=== PATIENT | female | born 1985 | race Caucasian/White ===

== ENCOUNTER 2022-05-22 07:12 | Inpatient (IN) | payer MEDICAID, SELFPAY ==
[2022-05-22] VITALS (47 sets, daily range): BP systolic 72–129; BP diastolic 48–82; PULSE 72–93; RESP 16–17; TEMP 36.8–37.7; O2SAT 97–100; BMI 30.6
[2022-05-22] MEDS: Lactated Ringers 1,000 ML 50 ML IV (07:55)
[2022-05-22 08:15] LABS: Absolute Lymphocyte Count 2.31 X10^3/uL (0.83-4.51); Absolute Neutrophil Count 7.3 X10^3/uL (2.0-7.7); Basophil# 0.02 X10^3/uL; Basophil% 0.2 % (0-1); Eosinophil# 0.11 X10^3/uL; Eosinophils% 1.1 % (0-5); Hematocrit 36.8 % (37-47); Hemoglobin 11.6 g/dL (12.0-15.0); Lymphocyte # 2.31 X10^3/ul (0.83-4.51); Lymphocyte % 22.1 % (19-41); Mean Corp Hgb Conc 31.5 g/dL (32-36); Mean Corpuscular Hgb 26.4 pg (27.0-32.0); Mean Corpuscular Volume 83.8 fL (81-99); Mean Platelet Vol. 11.6 fl (6.2-12.0); Monocyte# 0.59 X10^3/uL; Monocyte% 5.7 % (0-10); NRBC Flagged by Analyzer 0 % (0-5); Neutrophil # 7.29 X10^3/uL (2.7-7.7); Neutrophil % 69.8 % (47-70); Platelet Count 165 K/mm3 (150-450); RBC Distribution Width CV 13.6 % (11.6-14.6); RBC Distribution Width SD 41.6 fl (35.1-43.9); Red Blood Count 4.39 M/mm3 (4.2-5.4); White Blood Count 10.4 K/mm3 (4.4-11.0)
[2022-05-22] MEDS: Oxytocin 15 Units/NS 250ml 15 UNITS/250 ML IV.SOLN 2 UNITS IV (09:09)
[2022-05-22] MEDS: LACTATED RINGERS 500 ML 999 ML IV (10:27)
[2022-05-22] MEDS: fentaNYL-bupivacaine (epidural) 100 ML BAG EPIDURAL ×2 (11:23→15:34)
[2022-05-22] MEDS: Penicillin G 3,000,000 Units 50 ML 100 UNITS IV (12:37)
--- NOTE | 2022-05-22 12:43 | PCM.HP.OB ---
HPI - General General Date of Admission: 05/22/22 Date of Service: 05/22/22 Chief Complaint: 40+ weeks HPI Narrative SHRUTHI BARAHONA, is a 37 YOF @ 40 2/7 weeks presents for induction of labor due to advanced maternal age. Good FM. No VB/LOF. PFSH PFS Medical History (Updated 05/22/22 @ 12:[address] Yari Marcus MD) Varicose veins during Home Medications NK 05/22/22 [History Last Taken Unknown] Allergy/AdvReac Type Severity Reaction Status Date / Time No Known Allergies Allergy Verified 05/22/22 07:50 Surgical History no surgical history Social History Smoking Status: Never smoker History Elective abortions Hx Para 6 Spontaneous abortions Hx # Term Pregnancies Ectopic pregnancies Hx # Pregnancies Multiple births # of living children ROS Constitutional Constitutional: Denies fatigue, fever(s) or malaise Eyes Eyes: Denies change in vision ENT HEENT: Denies dizziness or headache(s) Cardiovascular Cardiovascular: Denies chest pain, dyspnea or lightheadedness Respiratory/Chest Respiratory/Chest: Denies cough or dyspnea Gastrointestinal Gastrointestinal: Denies change in bowel habits Genitourinary Genitourinary: Denies burning urination or genital lesions Integumentary Integumentary: Denies rash Neurologic Neurologic: Denies confusion, dizziness, headache(s), numbness or weakness Vital Signs Vital Signs Vital Signs: 05/22/22 08:30 05/22/22 08:30 05/22/22 08:33 Temperature 99.1 F Temperature Source Pulse Rate 86 Blood Pressure 111/72 BP Systolic 111 BP Diastolic 72 Pulse Ox 05/22/22 08:33 05/22/22 08:33 05/22/22 08:33 Temperature 99.2 F H Temperature Source Temporal Pulse Rate Blood Pressure BP Systolic BP Diastolic Pulse Ox 97 05/22/22 10:12 05/22/22 10:12 05/22/22 10:12 Temperature 98.8 F Temperature Source Pulse Rate 83 Blood Pressure 116/69 BP Systolic 116 BP Diastolic 69 Pulse Ox 05/22/22 11:07 05/22/22 11:07 05/22/22 11:12 Temperature Temperature Source Pulse Rate 83 79 Blood Pressure BP Systolic BP Diastolic Pulse Ox 99 05/22/22 11:12 05/22/22 11:16 05/22/22 11:16 Temperature Temperature Source Pulse Rate 90 Blood Pressure 121/80 H BP Systolic 121 BP Diastolic 80 Pulse Ox 100 05/22/22 11:16 05/22/22 11:16 05/22/22 11:17 Temperature Temperature Source Pulse Rate 84 82 Blood Pressure 129/79 H BP Systolic 129 BP Diastolic 79 Pulse Ox 05/22/22 11:17 05/22/22 11:22 05/22/22 11:22 Temperature Temperature Source Pulse Rate 84 Blood Pressure BP Systolic BP Diastolic Pulse Ox 99 99 05/22/22 11:27 05/22/22 11:27 05/22/22 11:27 Temperature Temperature Source Pulse Rate 86 92 Blood Pressure 111/67 BP Systolic 111 BP Diastolic 67 Pulse Ox 05/22/22 11:27 05/22/22 11:31 05/22/22 11:31 Temperature Temperature Source Pulse Rate 89 Blood Pressure 110/65 BP Systolic 110 BP Diastolic 65 Pulse Ox 98 05/22/22 11:32 05/22/22 11:32 05/22/22 11:36 Temperature Temperature Source Pulse Rate 89 Blood Pressure 97/58 L BP Systolic 97 BP Diastolic 58 Pulse Ox 98 05/22/22 11:36 05/22/22 11:37 05/22/22 11:37 Temperature Temperature Source Pulse Rate 93 87 Blood Pressure BP Systolic BP Diastolic Pulse Ox 98 05/22/22 11:41 05/22/22 11:41 05/22/22 11:42 Temperature Temperature Source Pulse Rate 85 82 Blood Pressure 104/60 BP Systolic 104 BP Diastolic 60 Pulse Ox 05/22/22 11:42 05/22/22 11:46 05/22/22 11:46 Temperature Temperature Source Pulse Rate 82 Blood Pressure 110/64 BP Systolic 110 BP Diastolic 64 Pulse Ox 99 05/22/22 11:47 05/22/22 11:47 05/22/22 11:51 Temperature Temperature Source Pulse Rate 83 Blood Pressure 108/63 BP Systolic 108 BP Diastolic 63 Pulse Ox 99 05/22/22 11:51 05/22/22 11:52 05/22/22 11:52 Temperature Temperature Source Pulse Rate 80 85 Blood Pressure BP Systolic BP Diastolic Pulse Ox 99 05/22/22 11:56 05/22/22 11:56 05/22/22 11:57 Temperature Temperature Source Pulse Rate 81 84 Blood Pressure 111/62 BP Systolic 111 BP Diastolic 62 Pulse Ox 05/22/22 11:57 05/22/22 12:01 05/22/22 12:01 Temperature Temperature Source Pulse Rate 80 Blood Pressure 109/63 BP Systolic 109 BP Diastolic 63 Pulse Ox 100 05/22/22 12:02 05/22/22 12:02 Temperature Temperature Source Pulse Rate 76 Blood Pressure BP Systolic BP Diastolic Pulse Ox 99 Weight Weight: 83.3 kg Body Mass Index (BMI) 30.6 Physical Exam Const alert and no apparent distress General Appearance: cooperative HEENT normocephalic Resp normal respiratory effort Cardio regular rate GI soft to palpation GI Narrative: gravid, nontender, appropriate for gestational age Extremity no calf tenderness General Extremity: edema Skin no wounds Rashes: No rashes noted Psych activity/motor behavior normal Labs Labs Labs: Blood Type O POSITIVE Antibody Screen NEGATIVE Hct 36.8 % (37-47) L Hgb 11.6 g/dL (12.0-15.0) L Assessment & Plan (1) Advanced maternal age (AMA) in : PLAN: R/B/A/ to induction of labor reviewed, questions answered. Consent signed and she desires to proceed. Cervix now 3/60/-3. AROM w/ return of large amount of clear fluid. IUPC placed. EFW is <4500 gm clinically and pelvis clinically adequate. Comfortable w/ epidural (2) Grand multipara in labor in third trimester: (3) 40 weeks gestation of :
[2022-05-22] MEDS: Lactated Ringers 1,000 ML 200 ML IV (16:01)
--- NOTE | 2022-05-22 17:12 | EX.PCM.OBRPT ---
Assessment & Plan (1) (spontaneous vaginal delivery): Maternal Data Information Final YU: 05/20/22 Gestational age: 40 2/7 Vaginal Delivery Maternal Presentation Maternal Presentation: Medically Indicated Induction Type of Induction: Pitocin and Amniotomy Operative Information Date of Procedure: 05/22/22 Pre-Operative Diagnosis: labor Post-Operative Diagnosis: same Surgery / Procedure Performed: Spontaneous Vaginal Delivery Type of Anesthesia: Epidural Special Medications: none Drain: Cooper to straight drain Estimated Blood Loss: 300 Time of Delivery: 17:02 Findings Description of Procedure: A vigorous male was delivered LEE over an intact perineum. The remainder the was delivered with maternal pushing and gentle traction only in less than 15 seconds. The Pitocin infusion was initiated for active management of the third stage. The cord was clamped and cut after 1 minute. The infant was attended to by the waiting nursing staff. The placenta was delivered spontaneously and intact. The cervix and vagina were intact. Sponge and needle counts were correct. A vaginal sweep was completed by me. Presentation: LEE Amniotic Membrane Rupture Type: Spontaneous Amniotic Fluid Description: Clear Placental Delivery Description: Spontaneous Placenta Disposition: [facility] Cord Vessel Description: 3 Vessels Cord Entanglement: None Infant A Gender: Male (aroldo) (1 minute): 9 (5 minute): 9 Delayed Cord Clamping: Yes Post Vaginal Delivery Medications Given After Delivery: IV Pitocin Episiotomy Description: None Laceration: None Complication Complications: None
[2022-05-22] MEDS: Oxytocin 15 Units/NS 250ml 15 UNITS/250 ML IV.SOLN 83 UNITS IV (17:36)
[2022-05-22] MEDS: 0.9% Saline Lock 10 ML Syringe IV (20:47)
--- NOTE | 2022-05-22 21:57 | NURSING ---
This RN used a romansh sign language interpreter Angela [id number] to communicate with pt about care. Pt legs still feel somewhat numb and heavy and this RN is waiting before trying to get up pt for first time after delivery.
--- NOTE | 2022-05-22 22:57 | NURSING ---
This RN used kyrgyz interpretor anthony [id number] and pt got up out of bed for first time since delivery at 2245 and catheter out at 2250. Told pt to call me when she needs to get up the next time to make sure pt is stable and safe when up on own.
--- NOTE | 2022-05-22 23:49 | NURSING ---
This RN used interpretor anthony [id number] to communicate with pt. Temporal temp was 99.8 and recheck oral temp was 98.8. pt stated she felt a little warm. This RN gave her a fan to use and educated about not putting the fan in the path of the .
[2022-05-23] VITALS (9 sets, daily range): BP systolic 110–120; BP diastolic 68–81; PULSE 82–95; RESP 17–20; TEMP 36.7–37
--- NOTE | 2022-05-23 01:32 | NURSING ---
at 0100, this RN used spanish interpreter Destinee [id number]. Had pt begin nursing at 0112. pt denies any pain and denied that any pain medication is needed at this time.
[2022-05-23] MEDS: Acetaminophen 500 MG Tablet 1000 MG PO ×2 (02:13→15:13)
--- NOTE | 2022-05-23 02:25 | NURSING ---
In pts room at 0205, communicated with epoxy coatings installer deepti [id number]. Pt stated she already got up to use restroom but hat was not in toilet and urine was not measured. I explained that I forgot to put hat in toilet and that we will still measure two voids. Pt stated she has 6/10 pain in her lower legs but it is worse on the right leg. This RN called edwige RN in to help assess pts legs. Pt was unaware what varicose veins were but did say she has had a problem before with her veins when trying to communicate with her through the epoxy coatings installer. No redness noted in calf or foot. Will continue to monitor.
--- NOTE | 2022-05-23 02:34 | NURSING ---
at 0200 pt got up herself to use the bathroom and was able to void but no hat was placed in the toilet. Will continue to measure two voids.
--- NOTE | 2022-05-23 04:29 | NURSING ---
This RN used towel distributor Jerry [id number] to communicate with pt at 0415.
[2022-05-23] MEDS: Senna/Docusate Sodium 1 Tablet PO (05:06)
--- NOTE | 2022-05-23 05:35 | NURSING ---
at 0500, this rn communicated with pt using sign language interpreter [id number] named arianna. Pt voided for first time into hat to measure and was requesting something to help her have a bowel movement.
--- NOTE | 2022-05-23 11:29 | PCM.PROGNOTE ---
Subjective Subjective patient seen at bedside, doing well. Patient reports good pain control. lochia mild. Objective Data Objective Data Vital Signs: Vital Signs Temp Pulse Resp BP Pulse Ox O2 Del Method 98.6 F 94 20 H 120/74 97 Room Air 05/23/22 09:00 05/23/22 09:00 05/23/22 09:00 05/23/22 09:00 05/22/22 20:41 05/22/22 20:41 Oxygen Delivery Method Room Air Weight: 83.3 kg Body Mass Index (BMI) 30.6 Intake & Output: Intake and Output for Last 24 Hours 05/21/22 05/22/22 05/23/22 23:59 23:59 23:59 Intake Total 2365.00 / 2365.00 Output Total 1000 / 1000 350 / 350 Balance 1365.00 / 1365.00 -350 / -350 Lab / Micro Data Result Diagrams: 05/22/22 07:55 Micro: Microbiology 05/22/22 07:55 Nasal Secretion SARS-CoV-2 Antigen (Rapid) - Final Physical Exam Const alert and oriented x3 General Appearance: cooperative HEENT normocephalic Neck General: normal visual inspection GI soft to palpation and non-distended GI Narrative: Fundus firm Extremity normal to inspection and no calf tenderness Skin no rashes or lesions noted Neuro oriented x3 and CN's II-XII intact bilaterally Psych mental status grossly normal Assessment & Plan Assessment/Plan (1) (spontaneous vaginal delivery): PLAN: Plan PPD#1 , Doing well Routine care pain mgmt ambulation dc home today
--- NOTE | 2022-05-23 11:30 | DCINST_ITS ---
Discharge Instructions Procedure Vaginal Delivery Diet Discharge Diet: No restrictions Activity May resume sexual activity in: 6-8 weeks Dressing / Incision Call your doctor if you observe: Fever of 101 or Higher, Inability to urinate, Using more than 1 pad per hour and Uncontrolled pain Follow Up Care Please Follow Up With: Evette Champion MD When: 1-2 weeks post and again at 6 weeks post . [phone] Test Results: Test results from this visit will be discussed in further detail at your follow- up appointment, if applicable. Discharge Plan Admission Admit Date/Time: 05/22/22 07:12 Attending Provider: Yari Marcus Primary Care Provider: Care Physician,Sharri Primary Discharge Orders/Prescriptions Prescriptions: No Action NK Referrals / Follow Up: Care Physician,No Primary [Primary Care Provider] -
--- NOTE | 2022-05-23 15:57 | NURSING ---
phq9 not done d/t director of social services in to work with pt and use [employer] translation screening to verify pt status with depression. fob was on the phone and stated he did not feel pt had depression, only that she has delt with everything going on in [facility] ([place])
--- NOTE | 2022-05-23 19:44 | NURSING ---
present reviewed discharge teaching with him as well, instructed pt needs to be seen in 1-2 weeks and 6weeks post
== END 2022-05-23 19:44 | disposition home or self-care (01) | DRG 560 ==
PROVIDERS: Advanced Practice Midwife; Admitting Provider Obstetrics & Gynecology; Visit Provider Obstetrics & Gynecology
DX: O80 Encounter for full-term uncomplicated delivery (principal); Z37.0 Single live birth; Z3A.40 40 weeks gestation of pregnancy
CPT/HCPCS: 59025; 59050; 85025; 86850; 86900; 86901; 87426; 99218; J7120; A4216; G0378